=== PATIENT | female | born 1975 | race Caucasian/White ===

== ENCOUNTER 2023-04-15 10:39 | Outpatient (CLI) | payer MEDICARE, MEDICAID, OTHER ==
[~2023-04-15 10:39] MED LIST: ESCI-8 PO; FLUT16SP26 BOTHNARES; HYDR-3717 PO; [UNRECOGNIZED DRUG - OTHER] PO
[2023-04-15] MEDS ORDERED: GADOTERATE MEGLUMINE 7.5 MMOL/15 ML VIAL IV ONE (18:08)
== END 2023-04-15 23:59 | disposition home or self-care (01) ==
LOC: RAD 10:39
PROVIDERS: ATTEND Family Medicine
DX: G43.E01 Chronic migraine with aura, not intractable, with status migrainosus (principal); G43.001 Migraine without aura, not intractable, with status migrainosus
CPT/HCPCS: 70553; A9575